=== PATIENT | male | born 1950 | race Caucasian/White ===

== ENCOUNTER 2021-02-17 10:01 | Inpatient (IN) ==
[2021-02-17] MEDS: Furosemide 40 MG TABLET PO SCH (16:52)
[2021-02-17] MEDS: *HR* HYDROcodone/Acet 5/325 mg TABLET PO PRN (20:00)
[2021-02-17] MEDS ORDERED: allopurinoL 100 MG TABLET PO SCH (21:00)
[2021-02-17] MEDS ORDERED: Apixaban 5 MG TABLET PO SCH (21:00)
[2021-02-17] MEDS: *HR* Amiodarone 200 MG TABLET PO SCH (21:54)
[2021-02-17] MEDS: traZODone 50 MG TABLET PO SCH (21:54)
[2021-02-17] MEDS: cephALEXin 500 MG CAPSULE PO SCH (21:54)
[2021-02-18] MEDS: *HR* HYDROcodone/Acet 5/325 mg TABLET PO PRN ×3 (05:19→17:53)
[2021-02-18 07:44] LABS: Basophils # 0.1 K/mcL (0.0-0.2); Basophils % 1.1 %; Eosinophils # 0.3 K/mcL (0.0-0.6); Eosinophils % 2.6 %; Hematocrit 31.9 % (37.5-50.1); Hemoglobin 9.6 g/dL (12.9-16.9); Immature Granulocytes % 0.7 % (0-4); Lymphocytes # 0.9 K/mcL (0.6-4.6); Lymphocytes % 8.6 %; Mean Corpuscular HGB Conc 30.1 g/dL (31.6-35.5); Mean Corpuscular Hemoglobin 25.9 pg (28.0-33.3); Mean Platelet Volume 9.6 fL (9.4-12.4); Monocytes # 1.2 K/mcL (0.0-1.3); Monocytes % 11.4 %; Neutrophils # 7.9 K/mcL (1.6-8.9); Platelet Count 691 K/mcL (140-400); Red Blood Count 3.71 M/mcL (4.19-5.50); Segmented Neutrophils % 75.6 %; White Blood Count 10.5 K/mcL (4.3-11.1)
[2021-02-18 08:04] LABS: Calcium 9.3 mg/dL (8.6-10.3); Potassium 4.1 mEq/L (3.5-5.1)
[2021-02-18] MEDS: Cholecalciferol (D-3) 1,000 UNIT (25MCG) TABLET PO SCH (08:42)
[2021-02-18] MEDS: Magnesium Oxide 400 MG TABLET PO SCH (08:42)
[2021-02-18] MEDS: *HR* Amiodarone 200 MG TABLET PO SCH ×2 (08:42→21:29)
[2021-02-18] MEDS: Furosemide 40 MG TABLET PO SCH ×2 (08:42→16:39)
[2021-02-18] MEDS: Aspirin Enteric Coated 81 MG Tablet PO SCH (08:42)
[2021-02-18] MEDS: Cyanocobalamin (B-12) 1,000 MCG TABLET PO SCH (08:42)
[2021-02-18] MEDS: cephALEXin 500 MG CAPSULE PO SCH ×2 (08:42→21:29)
[2021-02-18] MEDS: Metoprolol XL (24 HR) Succ 25 MG TAB.ER.24H PO SCH (08:43)
[2021-02-18] MEDS ORDERED: Furosemide 40 MG TABLET PO SCH (09:00)
[2021-02-18] MEDS: traZODone 50 MG TABLET PO SCH (21:29)
[2021-02-19] MEDS: *HR* HYDROcodone/Acet 5/325 mg TABLET PO PRN ×5 (00:24→23:37)
[2021-02-19] MEDS: Magnesium Oxide 400 MG TABLET PO SCH (08:29)
[2021-02-19] MEDS: Cyanocobalamin (B-12) 1,000 MCG TABLET PO SCH (08:29)
[2021-02-19] MEDS: Metoprolol XL (24 HR) Succ 25 MG TAB.ER.24H PO SCH (08:29)
[2021-02-19] MEDS: Cholecalciferol (D-3) 1,000 UNIT (25MCG) TABLET PO SCH (08:30)
[2021-02-19] MEDS: Aspirin Enteric Coated 81 MG Tablet PO SCH (08:30)
[2021-02-19] MEDS: Furosemide 40 MG TABLET PO SCH ×2 (08:30→16:47)
[2021-02-19] MEDS: cephALEXin 500 MG CAPSULE PO SCH ×2 (08:30→20:22)
[2021-02-19] MEDS: *HR* Amiodarone 200 MG TABLET PO SCH ×2 (08:30→20:20)
[2021-02-19] MEDS: traZODone 50 MG TABLET PO SCH (20:20)
[2021-02-20 06:38] VITALS: BP 96/57
[2021-02-20] MEDS: Magnesium Oxide 400 MG TABLET PO SCH (08:05)
[2021-02-20] MEDS: *HR* Amiodarone 200 MG TABLET PO SCH (08:05)
[2021-02-20] MEDS: Aspirin Enteric Coated 81 MG Tablet PO SCH (08:05)
[2021-02-20] MEDS: Metoprolol XL (24 HR) Succ 25 MG TAB.ER.24H PO SCH (08:05)
[2021-02-20] MEDS: Cyanocobalamin (B-12) 1,000 MCG TABLET PO SCH (08:06)
[2021-02-20] MEDS: Cholecalciferol (D-3) 1,000 UNIT (25MCG) TABLET PO SCH (08:06)
[2021-02-20] MEDS: cephALEXin 500 MG CAPSULE PO SCH (08:06)
[2021-02-20] MEDS: *HR* HYDROcodone/Acet 5/325 mg TABLET PO PRN ×2 (08:06→13:32)
[2021-02-20] MEDS: Furosemide 40 MG TABLET PO SCH (08:07)
== END 2021-02-20 16:13 | disposition home or self-care (01) | DRG 949 ==
LOC: INPPIK 11:12
PROVIDERS: ADMIT Family Medicine; ATTEND Family Medicine